=== PATIENT | male | born 1965 | race Caucasian/White ===

== ENCOUNTER 2020-04-13 11:20 | Emergency (ER) | payer OTHER ==
--- NOTE | 2020-04-13 11:46 | ED ---
ENT HPI - General Chief complaint: ENT Stated complaint: Earache Time Seen by Provider: 04/13/20 11:40 Source: patient, RN notes reviewed Mode of arrival: ambulatory Limitations: no limitations - History of Present Illness Initial comments: 54 show male presented for tingling left ear pain. Patient states she's had increasing pain last few days. Patient states she's been using some [id number] eardrops and states it was helping but not helping anymore. He states he feels like he has fluid in his anterior is had some intermittent mid dizziness with this. No chest pain no fever no chills no significant headache no difficulty swallowing. Patient states that he has no significant ear issues - Related Data Previous Rx's Medication Instructions Recorded Amoxicillin/Potassium Clav 1 tab PO Q12HR #20 tab 04/13/20 [Augmentin 875-125 Tablet] Meclizine [Antivert] 25 mg PO TID PRN #15 tab 04/13/20 Allergies Allergy/AdvReac Type Severity Reaction Status Date / Time No Known Allergies Allergy Verified 04/13/20 11:33 Review of Systems ROS Statement: Those systems with pertinent positive or pertinent negative responses have been documented in the HPI. ROS Other: All systems not noted in ROS Statement are negative. Past Medical History Past Medical History: No Reported History History of Any Multi-Drug Resistant Organisms: None Reported Past Surgical History: Orthopedic Surgery Additional Past Surgical History / Comment(s): Leg, heart cath. possibly? pt unsure Past Psychological History: No Psychological Hx Reported Smoking Status: Current every day smoker Past Alcohol Use History: None Reported Past Drug Use History: None Reported General Exam Limitations: no limitations General appearance: alert, in no apparent distress Head exam: Present: atraumatic, normocephalic, normal inspection Eye exam: Present: normal appearance, PERRL, EOMI. Absent: scleral icterus, conjunctival injection, periorbital swelling ENT exam: Present: normal oropharynx, mucous membranes moist, normal external ear exam (No mastoid tenderness no rash). Absent: TM's normal bilaterally (Other erythema, fluid noted left TM) Neck exam: Present: normal inspection, full ROM. Absent: tenderness, meningismus, lymphadenopathy Respiratory exam: Present: normal lung sounds bilaterally. Absent: respiratory distress, wheezes, rales, rhonchi, stridor Cardiovascular Exam: Present: regular rate, normal rhythm, normal heart sounds. Absent: systolic murmur, diastolic murmur, rubs, gallop, clicks Course Vital Signs 04/13/20 11:30 Temperature 97.9 F Pulse Rate 62 Respiratory 18 Rate Blood Pressure 134/70 O2 Sat by Pulse 97 Oximetry Medical Decision Making - Medical Decision Making Patient has mild fluid noted in left ear, mild erythema which is for acute otitis media we given any Biaxin and Antivert for his dizziness return parameters were discussed. Work note was provided. Disposition Clinical Impression: Otitis media Disposition: HOME SELF-CARE Condition: Stable Instructions (If sedation given, give patient instructions): Earache (ED) Additional Instructions: Please return to the Emergency Department if symptoms worsen or any other concerns. Prescriptions: Meclizine [Antivert] 25 mg PO TID PRN #15 tab PRN Reason: Vertigo Amoxicillin/Potassium Clav [Augmentin 875-125 Tablet] 1 tab PO Q12HR #20 tab Is patient prescribed a controlled substance at d/c from ED?: No Referrals: None,Stated [Primary Care Provider] - 1-2 days Time of Disposition: 11:46
[2020-04-13 12:23] VITALS: BP 123/67; PULSE 64; RESP 12; TEMP 98.7
== END 2020-04-13 12:23 | disposition home or self-care (01) ==
LOC: EC 11:20
DX: H66.92 Otitis media, unspecified, left ear (principal); F17.200 Nicotine dependence, unspecified, uncomplicated
CPT/HCPCS: 99282